=== PATIENT | male | born 1995 | race Caucasian/White ===

== ENCOUNTER 2021-01-13 08:31 | Emergency (ER) | payer MEDICAID, OTHER ==
[~2021-01-13] VITALS: Ht 165.1 cm; Wt 85.0 kg
[2021-01-13] MEDS ORDERED: LEVETIRACETAM 500MG TABLET PO ONE (09:00)
[2021-01-13 10:23] LABS: HEMATOCRIT. 51.8 % (42.0-52.0); HEMOGLOBIN. 17.3 g/dL (14.0-18.0); MEAN CORPUSCULAR HEMOGLOBIN 28.8 pg (28.0-32.0); MEAN CORPUSCULAR VOLUME 86.4 fL (80.0-94.0); MEAN PLATELET VOLUME 8.9 fl (7.4-10.4); PLATELET 287 x1000/uL (130-400); RED BLOOD CELL COUNT 5.99 mill/uL (4.7-6.1); RED CELL DISTRIBUTION WIDTH 13.3 % (11.6-14.6)
[2021-01-13 10:24] LABS: CHLORIDE 109 mEq/L (98-107)
[2021-01-13 10:28] LABS: ETHANOL BLOOD < 10 mg/dL
[2021-01-13] MEDS ORDERED: QUETIAPINE FUMARATE 25MG TABLET PO SCH (11:00)
[2021-01-13] MEDS ORDERED: LORAZEPAM 2MG/ML CPJ IV ONE (11:00)
[2021-01-13 11:10] LABS: NUCLEATED RED BLOOD CELLS 2 /100 WBC; PLATELET ESTIMATE NORMAL
[2021-01-13 11:28] VITALS: BP 142/76
== END 2021-01-13 12:34 | disposition home health service (06) ==
LOC: ER 08:31
DX: R56.9 Unspecified convulsions (principal); F79 Unspecified intellectual disabilities
CPT/HCPCS: 36415; 80053; 80320; 85025; 96374; 99283; J2060; G0480